=== PATIENT | male | born 1975 | race Two or more races ===

== ENCOUNTER 2024-02-03 20:18 | Emergency (ER) | payer MEDICAID, SELFPAY ==
--- NOTE | 2024-02-03 20:22 | EKG_ITS ---
[facility] Test Date: 2024-02-03 Pat Name: ANA CRISTINA CAMPOVERDE Department: Room: - Gender: Male [employer] Operator: : 1975 Requested By: Vu Caban Order Number: [id number] Reading MD: Vu Caban Measurements Intervals Point Rate: 104 P: 26 GA: 147 QRS: 47 QRSD: 110 T: 30 QT: 332 QTc: 437 Interpretive Statements SINUS TACHYCARDIA NONSPECIFIC T-WAVE ABNORMALITY ABNORMAL RHYTHM ECG Compared to ECG 12/09/2023 11:07:54 Sinus rhythm no longer present Short GA interval no longer present T-wave abnormality still present /store/S0/[id number]/ecg/[id number].pdf
[2024-02-03 20:23] VITALS: BP 123/68; PULSE 107; RESP 18; TEMP 36.8; O2SAT 99
--- NOTE | 2024-02-03 20:23 | XR_ITS ---
Examination: PA chest single view Technique: Upright PA chest single view Exam date and time: January 26, 2024 2047 hrs. Indications: Onset chest pain today. Findings: Mild prominence of ventricle No pneumonia or pulmonary edema The osseous structures are intact Impression: No pneumonia or pulmonary edema
--- NOTE | 2024-02-03 20:24 | EDNOTE_ITS ---
ED General RME/HPI General Chief complaint: Chest Pain Stated complaint: CHEST PAIN, ETOH Time Seen by Provider: 02/03/24 20:22 Arrival date/time: 02/03/24 20:18 RME / HPI RME / HPI narrative: 48-year-old male patient with significant history of hypertension diabetes mellitus, was brought in by EMS for evaluation regarding left shoulder pain. Patient told me he is having pain to the left shoulder area, radiating to the left chest, for several days, described as a long time ago, severity moderate. Patient was noted to be drunk. Patient is refusing to be touch or examine. No medication was given prior to arrival. Related Data Home Medications ?Medication ?Instructions ?Recorded ?Confirmed atorvastatin 40 mg tablet 40 tab PO DAILY 08/12/21 12/10/23 valsartan 40 mg tablet 40 mg PO DAILY 12/09/23 12/10/23 Previous Rx's ?Medication ?Instructions ?Recorded metformin 500 mg tablet 500 mg PO BID #60 tabs 08/13/21 ketorolac 10 mg tablet 10 mg PO TID PRN pain 5 days #20 02/03/24 tabs Allergies Allergy/AdvReac Type Severity Reaction Status Date / Time No Known Allergies Allergy Verified 12/10/23 06:00 Review of Systems Review of Systems Narrative Review of Systems: Review of system reviewed and within normal limits except mentioned in HPI ED Exam Narrative Physical exam: Patient is refusing to be touched or examined. Course Quality Measures none Orders Category Date Time Status EKG (ED ONLY) *Do not use* NOW Care 02/03/24 20:23 Completed EKG (ED Only) Stat Exams 02/03/24 20:22 Draft XR chest 1V Stat Exams 02/03/24 20:23 Completed B-Type Natriuretic Peptide Stat Lab 02/03/24 20:36 Completed CBC Stat Lab 02/03/24 20:36 Completed Comprehensive Metabolic Panel Stat Lab 02/03/24 20:36 Completed Partial Thromboplastin Time Stat Lab 02/03/24 20:36 Completed Prothrombin Time with INR Stat Lab 02/03/24 20:36 Completed Troponin I Stat Lab 02/03/24 20:36 Completed Ibuprofen Tab [Motrin Tab] Med 02/03/24 20:23 Discontinued 800 mg PO X1 ONE Vital Signs Vital signs: Vital Signs Temperature 98.3 F 02/03/24 20:23 Pulse Rate 107 H 02/03/24 20:23 Respiratory Rate 18 02/03/24 20:23 Blood Pressure 123/68 02/03/24 20:23 Pulse Oximetry (%) 99 02/03/24 20:23 Oxygen Delivery Method Room Air 02/03/24 20:23 [facility] Patient data External records reviewed:: None Clinical information provided by:: patient Social determinants that could affect healthcare access:: none Patient has the following chronic illnesses:: Diabetes mellitus, chronic alcoholism How is presenting disease/condition affected by chronic disease/condition?: e xacerbated by Evaluation data The following diagnostics were reviewed and interpreted by me:: lab results, radiology exam(s) and EKG tracing(s) Lab and/or radiology exams considered but not ordered:: None Interpretation Summary: Laboratory workup all came back unremarkable including normal troponin. I personally reviewed and interpreted the x-ray of this patient. There is no acute abnormalities found, no infiltrates no pneumothorax no hemothorax normal chest x-ray. Review of other structures was without significant abnormal findings also. I additionally reviewed the radiologist report and agree with the interpretation. EKG showed sinus tachycardia, ventricular rate of 104 bpm, no ST segment elevation or depression noted. As read by me Medications Medications considered but not ordered:: None Medication administrations:: Medication Administration History Discontinued Medications Ibuprofen (Ibuprofen Tab 400 Mg Tablet) 800 mg PO X1 ONE Stop: 02/03/24 20:24 Last Admin: 02/03/24 20:40 Dose: 800 mg Documented By: CESAR Hong Consultations Consultation(s) initiated? (list below): No Diagnosis Differential Diagnosis ED Complaint MDM: Chest pain, muscular chest pain, pneumonia Most likely diagnosis given after review of the tests above:: Muscular chest pain Admission Indicated Admission indicated?: not indicated Explain why admission is indicated or not indicated:: Stable for discharge Admission Request Was there a request for admission?: No Disposition Plan Disposition Plan: Discharge Discharge Attestation Discharge Attestation: The patient was given an opportunity to ask questions and understood the discharge instructions. Discharge instructions specifically effects, indications for sooner follow up or return to the emergency department, and the expected course of current diagnosis. Patient condition: Stable Medical Decision Making Differential Diagnosis Differential Diagnosis: Chest pain, muscular chest pain, pneumonia Lab Data 02/03/24 20:36 02/03/24 20:36 Labs: Lab Results 11/28/24 Range/Units 20:36 WBC 10.4 (3.8-10.6) Thou/mm3 RBC 4.96 (4.50-5.90) Miln/mm3 Hgb 15.2 (13.5-16.0) g/dL Hct 43.5 (41.0-53.0) % MCV 88 (80-100) fL MCH 30.6 (25.0-35.0) pg MCHC 34.9 (31.0-37.0) g/dl RDW Std Deviation 43.9 (35.1-43.9) fL Plt Count 199 (140-440) Thou/mm3 Neut % (Auto) 50 (37-80) % Lymph % (Auto) 37 (10-50) % Lynn % (Auto) 9 (0-12) % Eos % (Auto) 3 (0-10) % Baso % (Auto) 1 (0-2.5) % Neut # (Auto) 5.2 (1.8-7.7) Thou/mm3 Lymph # (Auto) 3.9 (1.0-4.8) Thou/mm3 Lynn # (Auto) 0.9 H (0.0-0.8) Thou/mm3 Eos # (Auto) 0.3 (0.0-0.5) Thou/mm3 Baso # (Auto) 0.1 (0.0-0.2) Thou/mm3 Immature Gran # (Auto) 0.04 H (0.00-0.00) Thou/mm3 Absolute Nucleated RBC 0.00 (0.00-0.00) Thou/mm3 Immature Gran % 0 (0-0) % Nucleated RBC % 0 (0) /100 WBC PT 10.6 (9.0-12.2) Seconds INR 1.0 (0.9-1.3) APTT 24.3 (22.0-36.0) Seconds Sodium 135 L (136-145) mMol/L Potassium 3.6 (3.4-5.1) mMol/L Chloride 98 (98-107) mMol/L Carbon Dioxide 29.1 (20.0-31.0) mMol/L Anion Gap 8 (7-16) BUN 15 (9-23) mg/dL Creatinine 1.4 H (0.6-1.3) mg/dL Estim Creat Clear Calc 57.6 L (>60) mL/min eGFR > 60 (60 - ) See Note BUN/Creatinine Ratio 11 L (12-20) Ratio Glucose 180 H (74-106) mg/dL Calculated Osmolality 275 (275-295) Calcium 8.7 (8.3-10.6) mg/dL Corrected Calcium 8.7 (8.5-10.1) mg/dL Total Bilirubin 1.1 (0.3-1.2) mg/dL AST 109 H (0-34) U/L ALT 66 H (10-49) U/L Alkaline Phosphatase 85 (46-116) U/L Troponin I < 0.002 (0.0-0.045) ng/mL B-Natriuretic Peptide < 20 (0-100) pg/mL Total Protein 7.6 (5.7-8.2) gm/dL Albumin 5.0 (3.5-5.0) gm/dL Globulin 2.6 (2.3-3.5) gm/dL Albumin/Globulin Ratio 1.9 (1.2-2.2) Discharge Plan Plan Patient Disposition: HOME (Self Care) Disposition Comment: stable Prescriptions/Referrals Prescriptions/Med Rec: New ketorolac 10 mg tablet 10 mg PO TID PRN (Reason: pain) 5 Days Qty: 20 0RF No Action atorvastatin 40 mg tablet 40 tab PO DAILY Patient Comments: TAKE ONE TABLET BY MOUTH EVERY DAY FOR CHOLESTEROL metformin 500 mg tablet 500 mg PO BID Qty: 60 0RF valsartan 40 mg tablet 40 mg PO DAILY Patient Comments: TAKE ONE TABLET BY MOUTH EVERY DAY FOR BLOOD PRESSURE Referrals: No Primary/Family,Physician [Primary Care Provider] - In 1 week Problem List Clinical Impression: Muscular chest pain Patient/Caregiver Discharge Instructions Discharge Activity: activity as tolerated Education Materials: Understanding the Pain Response Additional Instructions: Thank you for the opportunity for serving you today. You are stable for discharged . You are advised to: Follow-up with your PCP in 1 to 2 days Return to ED for worsening of symptoms Increase oral fluids Take medication as prescribed Print Language: Prydeinig Stand Alone Forms: Marcia Award Info., Patient Portal Info Letter TEMI/JONATHAN Supervising Physician TEMI/JONATHAN Supervising Physician: MD Reagan
[2024-02-03 20:26] VITALS: PULSE 109; RESP 18; O2SAT 96; BMI 25.0
[2024-02-03] MEDS: IBUPROFEN TAB 400 MG TABLET 800 MG PO (20:40)
[2024-02-03 20:44] LABS: Basophils # (Auto) 0.1 Thou/mm3 (0.0-0.2); Basophils % (Auto) 1 % (0-2.5); Eosinophils # (Auto) 0.3 Thou/mm3 (0.0-0.5); Eosinophils % (Auto) 3 % (0-10); Hematocrit 43.5 % (41.0-53.0); Hemoglobin 15.2 g/dL (13.5-16.0); Immature Granulocytes % (Auto) 0 % (0-0); Immature Granulocytes Auto 0.04 Thou/mm3 (0.00-0.00); Lymphocytes # (Auto) 3.9 Thou/mm3 (1.0-4.8); Lymphocytes % (Auto) 37 % (10-50); Mean Corpuscular HGB Conc 34.9 g/dl (31.0-37.0); Mean Corpuscular Hemoglobin 30.6 pg (25.0-35.0); Mean Corpuscular Volume 88 fL (80-100); Monocytes # (Auto) 0.9 Thou/mm3 (0.0-0.8); Monocytes % (Auto) 9 % (0-12); Neutrophils # (Auto) 5.2 Thou/mm3 (1.8-7.7); Neutrophils % (Auto) 50 % (37-80); Nucleated Red Blood Cell % 0 /100 WBC (0); Platelet Count 199 Thou/mm3 (140-440); RDW Standard Deviation 43.9 fL (35.1-43.9); Red Blood Count 4.96 Miln/mm3 (4.50-5.90); White Blood Count 10.4 Thou/mm3 (3.8-10.6)
[2024-02-03 21:02] LABS: Partial Thromboplastin Time 24.3 Seconds (22.0-36.0); Prothrombin Time 10.6 Seconds (9.0-12.2)
[2024-02-03 21:03] LABS: B-Type Natriuretic Peptide < 20 pg/mL (0-100)
[2024-02-03 21:11] LABS: Alanine Aminotransferase 66 U/L (10-49); Albumin/Globulin Ratio 1.9 (1.2-2.2); Alkaline Phosphatase 85 U/L (46-116); Anion Gap 8 (7-16); Aspartate Amino Transferase 109 U/L (0-34); BUN/Creatinine Ratio 11 Ratio (12-20); Bilirubin,Total 1.1 mg/dL (0.3-1.2); Blood Urea Nitrogen 15 mg/dL (9-23); Calcium 8.7 mg/dL (8.3-10.6); Calcium (Corrected) 8.7 mg/dL (8.5-10.1); Carbon Dioxide 29.1 mMol/L (20.0-31.0); Chloride 98 mMol/L (98-107); Creatinine (Component) 1.4 mg/dL (0.6-1.3); Estimated Creatinine Clearance 57.6 mL/min (>60); Globulin 2.6 gm/dL (2.3-3.5); Glucose 180 mg/dL (74-106); Osmolality,Calculated 275 (275-295); Potassium 3.6 mMol/L (3.4-5.1); Sodium 135 mMol/L (136-145); Total Protein 7.6 gm/dL (5.7-8.2); eGFR > 60 See Note
[2024-02-03 21:24] LABS: Troponin I < 0.002 ng/mL (0.0-0.045)
== END 2024-02-03 22:08 | disposition home or self-care (01) ==
PROVIDERS: Nurse Practitioner Family; Emergency Provider Emergency Medicine
DX: R07.9 Chest pain, unspecified (principal); M25.512 Pain in left shoulder; R00.0 Tachycardia, unspecified; I10 Essential (primary) hypertension
CPT/HCPCS: 36415; 71045; 80053; 83880; 84484; 85025; 85610; 85730; 93005; 99283; A9270

== ENCOUNTER 2024-03-05 15:09 | Emergency (ER) | payer MEDICAID, SELFPAY ==
[2024-03-05 15:10] VITALS: BMI 30.7
--- NOTE | 2024-03-05 16:03 | PC.NURSE ---
called for pt from lobby/outside, no answerx1 @ [id number]
--- NOTE | 2024-03-05 16:20 | PC.NURSE ---
pt called back x2 at 1620. No response in lobby or outside
--- NOTE | 2024-03-05 16:32 | PC.NURSE ---
CALLED FROM LOBBY AND NO ANSWER
== END 2024-03-05 16:33 | disposition left against medical advice (07) ==
PROVIDERS: Emergency Provider Emergency Medicine
DX: Z53.21 Procedure and treatment not carried out due to patient leaving prior to being seen by health care provider (principal)

== ENCOUNTER 2024-03-07 09:00 | Outpatient (RCR) | payer MEDICAID, SELFPAY ==
--- NOTE | 2024-02-09 08:43 | PT.OIERPT ---
PT OP Initial Eval Patient Information Outpatient Physical Therapy Treatment Date: 02/09/24 Visit Reasons: left shoulder pain Medical Diagnosis: s/p L RCR Treatment Dx #1: L shoulder pain Treatment Dx #2: Dec L shoulder ROM Start of Care: 02/09/24 Date of Onset: 12/10/23 DOS Smoking Status Smoking Status: Never smoker Initial Assessment Subjective: Pt is 48 yr old male s/p L RCR reports popping, cracking and pain with reaching up. He avoids lifting the UE up and doesn't move it much. PMH: HTN, DM, EtOH abuse Pt goal: to reach up without pain Objective: L shoulder AROM: PROM: FF: 40 deg 60 deg Abd: 40 deg 40 deg Erot: 10 deg Strength: NT but estimated to be 3-/5 Assessment: Pt presents with very limited ROM s/p L RCR and high tissue irritability. Pt hasn't been moving the shoulder much since sx due to pain and now has adhesions and capsular tightness. He requires skilled therapy to meet goals and has fair rehab potential. Pt may benefit from JOIE of L shoulder. Short Term and Manufacturing Specialist Goals 1. Ind with HEP ? 2. Improved AROM of R shoulder to at least 135 deg FF, 125 deg abduction and 90 deg ? ER ? 3. Improved HBB ROM to L3 ? 4. Pt will reach OH x10 with <=4/10 pain Treatment Plan 1. Manual therapy ? 2. Therex ? 3. Modalities as indicated, moist heat, ice, estim Frequency and Duration: 2x a week for 24 sessions Certification Dates: 02/09/24 to 05/07/24 Procedure Charges OP PT Eval Mod Complex 30 minutes: Yes
--- NOTE | 2024-02-22 09:20 | PT.ODAYNRPT ---
PT Outpatient Daily Note OP Daily Note Outpatient Physical Therapy Treatment Date: 02/22/24 Visit Reasons: left shoulder pain Subjective: Same as time of evaluation Objective: See F/S for therex MHP during wand therex Assessment: Very limited A/PROM of L shoulder consistent with adhesive capsulitis. Pt is fearful to move due to pain. Plan: Improve ROM Length of Time (minutes) of Treatment: 30 Minutes Procedure Charges Therapeutic Exercise 30 minutes: Yes
--- NOTE | 2024-02-25 09:18 | PT.ODAYNRPT ---
PT Outpatient Daily Note OP Daily Note Outpatient Physical Therapy Treatment Date: 02/25/24 Visit Reasons: left shoulder pain Subjective: Pt reports L shoulder is painful and stiff. Objective: Please see flow sheet for ther ex list. Assessment: Pt educated and instructed on performing AAROM exercises for HEP. Plan: Continue with POC. Length of Time (minutes) of Treatment: 30 Minutes Procedure Charges Therapeutic Exercise 30 minutes: Yes
--- NOTE | 2024-03-07 09:37 | PT.ODAYNRPT ---
PT Outpatient Daily Note OP Daily Note Outpatient Physical Therapy Treatment Date: 03/07/24 Visit Reasons: left shoulder pain Subjective: Pt shared he had a follow up with surgeon, pt is going to be scheduled for a manipulation. Pt has a follow up on March 30 for further instructions. Objective: Please see flow sheet for ther ex list. Assessment: Pt has high pain and guarded during AAROM activities, slow progress. Plan: Continue with pOC. Length of Time (minutes) of Treatment: 30 Minutes Procedure Charges Therapeutic Exercise 30 minutes: Yes
== END 2024-03-07 23:59 | disposition home or self-care (01) ==
LOC: CPTX 09:00
PROVIDERS: PCP Orthopaedic Surgery; Referring Provider Orthopaedic Surgery; Visit Provider Orthopaedic Surgery
DX: M25.512 Pain in left shoulder (principal); M62.412 Contracture of muscle, left shoulder; Z98.890 Other specified postprocedural states
CPT/HCPCS: 97110; 97162

== ENCOUNTER 2024-03-21 15:52 | Emergency (ER) | payer MEDICAID, SELFPAY ==
[2024-03-21 16:00] VITALS: BP 111/62; PULSE 99; TEMP 36.8; O2SAT 97
--- NOTE | 2024-03-21 16:24 | PC.NURSE ---
PER EMS PT BEGAN YELLING STATING THAT HE WAS LEAVING AND WALKED OUT OF AMBULANCE BAY
== END 2024-03-21 16:00 | disposition left against medical advice (07) ==
LOC: SERX 16:37
PROVIDERS: Emergency Provider Emergency Medicine
DX: Z53.21 Procedure and treatment not carried out due to patient leaving prior to being seen by health care provider (principal)
CPT/HCPCS: 99281

== ENCOUNTER 2024-03-28 08:30 | Outpatient (RCR) | payer MEDICAID, SELFPAY ==
--- NOTE | 2024-03-16 08:55 | PT.ODAYNRPT ---
PT Outpatient Daily Note OP Daily Note Outpatient Physical Therapy Treatment Date: 03/16/24 Visit Reasons: left shoulder pain Subjective: Pt reports shoulder continues to be painful and stiff. Pt shared that he is scared to use it so he just keeps it down at his side. Pt mentioned he will be having a manipulation done, pt is scheduled for a follow up with surgeon at the end of the month. Objective: Please see flow sheet for ther ex list. Assessment: Pt educated on post op timeline and that is appropriate for him to use his arm for ADL's and encouraged to perform HEP. Plan: Continue with POC. Length of Time (minutes) of Treatment: 30 Minutes Procedure Charges Therapeutic Exercise 30 minutes: Yes
--- NOTE | 2024-03-21 08:40 | PT.ODAYNRPT ---
PT Outpatient Daily Note OP Daily Note Outpatient Physical Therapy Treatment Date: 03/21/24 Visit Reasons: left shoulder pain Subjective: Pt reports L shoulder continues to be stiff and painful. Objective: Please see flow sheet for ther ex list. Assessment: Pt continues to be highly guarded during AAROm, ROM progress slow. Plan: Continue with POC. Length of Time (minutes) of Treatment: 30 Minutes Procedure Charges Therapeutic Exercise 30 minutes: Yes
--- NOTE | 2024-03-28 09:05 | PT.ODAYNRPT ---
PT Outpatient Daily Note OP Daily Note Outpatient Physical Therapy Treatment Date: 03/28/24 Visit Reasons: left shoulder pain Subjective: Continued pain of L shoulder, limited ROM Objective: See F/S for therex Assessment: High fear pain avoidance, very limited L shoulder ROM consistent with adhesive capsulitis and high tissue irritability. Plan: Improve ROM of L shoulder Length of Time (minutes) of Treatment: 30 Minutes Procedure Charges Therapeutic Exercise 30 minutes: Yes
== END 2024-04-07 23:59 | disposition home or self-care (01) ==
LOC: CPTX 08:30
PROVIDERS: PCP Orthopaedic Surgery; Referring Provider Orthopaedic Surgery; Visit Provider Orthopaedic Surgery
DX: M25.512 Pain in left shoulder (principal); Z98.890 Other specified postprocedural states
CPT/HCPCS: 97110

== ENCOUNTER 2024-05-12 05:45 | Day surgery (SDC) | payer MEDICAID, SELFPAY ==
[2024-05-11 13:15] VITALS: BMI 29.0
[2024-05-11 14:23] LABS: Basophils % (Auto) 0 % (0-2.5); Eosinophils # (Auto) 0.3 Thou/mm3 (0.0-0.5); Eosinophils % (Auto) 3 % (0-10); Hematocrit 44.6 % (41.0-53.0); Hemoglobin 15.3 g/dL (13.5-16.0); Immature Granulocytes % (Auto) 0 % (0-0); Immature Granulocytes Auto 0.02 Thou/mm3 (0.00-0.00); Lymphocytes # (Auto) 2.4 Thou/mm3 (1.0-4.8); Lymphocytes % (Auto) 24 % (10-50); Mean Corpuscular HGB Conc 34.3 g/dl (31.0-37.0); Mean Corpuscular Hemoglobin 30.2 pg (25.0-35.0); Mean Corpuscular Volume 88 fL (80-100); Monocytes # (Auto) 0.6 Thou/mm3 (0.0-0.8); Monocytes % (Auto) 6 % (0-12); Neutrophils # (Auto) 6.6 Thou/mm3 (1.8-7.7); Neutrophils % (Auto) 67 % (37-80); Nucleated Red Blood Cell % 0 /100 WBC (0); Platelet Count 161 Thou/mm3 (140-440); RDW Standard Deviation 39.4 fL (35.1-43.9); Red Blood Count 5.06 Miln/mm3 (4.50-5.90); White Blood Count 9.9 Thou/mm3 (3.8-10.6)
[2024-05-11 14:31] LABS: INR 1.1 (0.9-1.3); Partial Thromboplastin Time 28.9 Seconds (22.0-36.0)
[2024-05-11 14:39] LABS: Alanine Aminotransferase 52 U/L (10-49); Albumin, Serum 4.9 gm/dL (3.5-5.0); Albumin/Globulin Ratio 1.8 (1.2-2.2); Alkaline Phosphatase 87 U/L (46-116); Anion Gap 6 (7-16); Aspartate Amino Transferase 51 U/L (0-34); BUN/Creatinine Ratio 14 Ratio (12-20); Bilirubin,Total 1.2 mg/dL (0.3-1.2); Blood Urea Nitrogen 17 mg/dL (9-23); Calcium 9.7 mg/dL (8.3-10.6); Calcium (Corrected) 9.7 mg/dL (8.5-10.1); Carbon Dioxide 28.8 mMol/L (20.0-31.0); Chloride 106 mMol/L (98-107); Creatinine (Component) 1.2 mg/dL (0.6-1.3); Estimated Creatinine Clearance 74.7 mL/min (>60); Globulin 2.7 gm/dL (2.3-3.5); Glucose 137 mg/dL (74-106); Osmolality,Calculated 284 (275-295); Potassium 4.6 mMol/L (3.4-5.1); Sodium 141 mMol/L (136-145); Total Protein 7.6 gm/dL (5.7-8.2); eGFR > 60 See Note
[2024-05-12] VITALS (7 sets, daily range): BP systolic 128–142; BP diastolic 71–95; PULSE 74–86; RESP 12–20; TEMP 36.3–36.6; O2SAT 95–99; BMI 30.7
[2024-05-12] MEDS: RINGERS LACTATED 1000 ML 1,000 ML 20 ML IV (06:42)
--- NOTE | 2024-05-12 07:27 | SUR.PREOP ---
Patient expressed gratitude for prayer before their procedure.
--- NOTE | 2024-05-12 08:25 | SUR.PHASEI ---
0825: Pt. AAOx4, vitals stable, breathing unlabored, no complaint of pain or nausea, bandaid in place CDI, no active bleed noted, report received from Heike DUVAL and MD Sheppard.
[2024-05-12] MEDS: fentaNYL CIT INJ 50 mCg/ML AMP 2ML IV ×3 (08:33→08:50)
--- NOTE | 2024-05-12 09:10 | SUR.PHASEII ---
0910: Pt. AAOx4, vitals stable, breathing unlabored, no complaint of pain or nausea, bandaid to left shoulder CDI, no active bleed noted, pt. tolerated sips of water well, pt. ambulated to wheelchair with steady gait and no assist, no complications. Gave discharge instructions to the pt. and his ride, both verbalized understanding and had no further questions. Pt. left with all personal belongings.
--- NOTE | 2024-05-12 09:21 | PD.SUROPNT ---
Date of Procedure 05/12/24 Pre Op Diagnosis Is status post left rotator cuff repair with Ethan procedure with frozen shoulder Post Op Diagnosis Same Procedure Manipulation under anesthesia Findings Refer dictation Procedure Description Patient was given MAC anesthesia. Once satisfactory anesthesia achieved the left shoulder was manipulated. Full range of abduction and forward flexion was achieved. There movement was then quite a few times. Following that under aseptic precaution 20 mL of 1% Marcaine along with 40 mg of Kenalog was injected. Patient tolerated procedure well. Estimated blood loss negligible Anesthesia MAC Pathology / specimen None Estimated Blood Loss 0 Surgeon Wilson Boateng MD Surgical Staff Operation Date: 05/12/24 08:00 Case Staff Anesthesiologist: Maurice Sheppard
--- NOTE | 2024-05-12 10:07 | ESHP_ITS ---
RE: ANA CRISTINA CAMPOVERDE : 1975 DATE OF ADMISSION: 05/12/2024 HISTORY OF PRESENT ILLNESS: The patient came to my office on 05/11/2024 for detailed preop history and physical examination. HISTORY OF PRESENTING COMPLAINT: The patient underwent left rotator cuff repair with Ethan procedure in the month of earlier 04/2023. The patient did fine initially, but later on developed frozen shoulder. The patient is unable to raise his left arm beyond 60 degrees of abduction and forward flexion. The patient did physical therapy, but it did not help him much. PAST MEDICAL HISTORY: The patient has a history of diabetes mellitus and high blood pressure. No history of asthma, seizures, chest pain, bleeding disorder, stroke, and myocardial infarction. PAST SURGICAL HISTORY: Cholecystectomy, status post left rotator cuff repair with Ethan procedure. DRUG HISTORY: The patient is on; 1. Metformin. 2. Jardiance. 3. Atorvastatin. 4. Valsartan. FAMILY HISTORY AND SOCIAL HISTORY: The patient admits to smoking, denies drinking and is disabled. PHYSICAL EXAMINATION: GENERAL: Normal built person. VITAL SIGNS: Pulse 82 per minute. Blood pressure is 128/76. NECK: Soft, supple. No masses felt. Trachea is centrally placed. CARDIOVASCULAR SYSTEM: First and second heart sound normal. No murmur heard. LUNGS: Bilateral vesicular breath sounds. CHEST: Clear. ABDOMEN: Soft. No masses felt. Bowel sounds present. EXTREMITIES: Left shoulder examination reveals a very well-healed eschar. There is mild tenderness. Active range of motion is 0 to 60 degrees of abduction, 0 to 70 degrees of forward flexion. No further range of motion is possible. Internal rotation is restricted. Clinically, the patient has frozen shoulder. ASSESSMENT AND PLAN: The patient was explained the diagnosis and prognosis. The patient did home physical therapy as well as physical therapy as well. However, it did not improve. The patient was advised manipulation under anesthesia and injection of corticosteroid. Detailed discussion took place. Risks and benefits were explained in detail. Risks with anesthesia includes, but not limited to reaction to anesthetic agents, cardiac arrest, and rarely it might be fatal. Risks with operation or manipulation includes possible damage to the nerves, possible fracture, etc. No guarantees given regarding the outcome of the procedure. Indeed, one may be able to achieve almost full range of abduction and forward flexion, but later on the patient may regress and that is primarily due to rather inactivities. The patient is encouraged to do home exercise beside the professional physical therapy. The manipulation is booked for 05/12/2024. Appropriate lab work was done. DT: 09:28:16 TT: 10:05:00 Ref: [id number] - TID: [id number]
== END 2024-05-12 09:10 | disposition home or self-care (01) ==
PROVIDERS: Anesthesiology; PCP Family Medicine; Referring Provider Orthopaedic Surgery; Visit Provider Orthopaedic Surgery
PROC: (CPT 23700; principal; 2024-05-12 08:00)
DX: M75.02 Adhesive capsulitis of left shoulder (principal); Z98.890 Other specified postprocedural states
CPT/HCPCS: 23700; 36415; 80053; 85025; 85610; 85730; A4217; J2704; J2919; J3010; J3490; J7120

== ENCOUNTER 2024-05-29 09:00 | Outpatient (RCR) | payer MEDICAID, SELFPAY ==
--- NOTE | 2024-05-15 08:32 | PT.ODS1RPT ---
PT OP Progress/Discharge Note Date of Service: 05/15/24 Progress Note/DC Note Progress Note/Discharge Note: Progress Note Patient Information Visit Reasons: RT shoulder cuff Service Continue Service or Discharge: Continue Service Status Subjective: Pt arrives with L UE in a sling and says he had a manipulation this past Wednesday and reports continued pain in L shoulder. Objective: L shoulder AROM; FF: 60 deg Abd: 55 deg ER: 45 deg Strength: 3-/5 in all planes Assessment: Pt has attended the evaluation and 6 Rx sessions since February with somewhat inconsistent attendance and high fear pain avoidance. He is not doing HEP and progress has been very limited with ROM consistent with adhesive capsulitis. Pt would benefit from continued therapy to meet goals and needs extended certification dates. Pt encouraged to do HEP. Plan: Extend POC dates from 05/07/24 to 08/07/24 to complete visits x18 more. We need MD signature to continue with therapy visits since order was for 8 visits. Procedure Charges Therapeutic Exercise 30 minutes: Yes
--- NOTE | 2024-05-29 09:24 | PT.ODAYNRPT ---
PT Outpatient Daily Note OP Daily Note Outpatient Physical Therapy Treatment Date: 05/29/24 Visit Reasons: RT shoulder cuff Subjective: Pt c/o clicking but notices he can reach higher now. Objective: Please see flow sheet for ther ex list. Assessment: High focus on restoring ROM, pt demonstrates upper trap recruitment at times to compensate for limited GH translation. Plan: Continue with POC. Length of Time (minutes) of Treatment: 30 Minutes Procedure Charges Therapeutic Exercise 30 minutes: Yes
== END 2024-06-05 23:59 | disposition home or self-care (01) ==
LOC: CPTX 09:00
PROVIDERS: PCP Orthopaedic Surgery; Referring Provider Orthopaedic Surgery; Visit Provider Orthopaedic Surgery
DX: M25.512 Pain in left shoulder (principal); M62.412 Contracture of muscle, left shoulder; Z98.890 Other specified postprocedural states
CPT/HCPCS: 97110

== ENCOUNTER 2024-06-21 09:30 | Outpatient (RCR) | payer MEDICAID, SELFPAY ==
--- NOTE | 2024-06-06 09:29 | PT.ODAYNRPT ---
PT Outpatient Daily Note OP Daily Note Outpatient Physical Therapy Treatment Date: 06/06/24 Visit Reasons: RIGHT SHOULDER SURGERY Subjective: Continued pain of L shoulder, improved ROM Objective: See F/S for therex Assessment: High fear pain avoidance, very limited L shoulder ROM consistent with adhesive capsulitis and high tissue irritability. Plan: Improve ROM of L shoulder Length of Time (minutes) of Treatment: 30 Minutes Procedure Charges Therapeutic Exercise 30 minutes: Yes
--- NOTE | 2024-06-13 10:30 | PT.ODAYNRPT ---
PT Outpatient Daily Note OP Daily Note Outpatient Physical Therapy Treatment Date: 06/13/24 Visit Reasons: RIGHT SHOULDER SURGERY Subjective: Pt reports R shoulder is doing better. Objective: Please see flow sheet for ther ex list. Assessment: Focus on restoring ROM, stretches performed within pt tolerable range. Pt guarded resulting limited mobility during AAROM and PROM interventions. Plan: Continue with POC. Length of Time (minutes) of Treatment: 30 Minutes Procedure Charges Therapeutic Exercise 30 minutes: Yes
--- NOTE | 2024-06-15 10:14 | PT.ODAYNRPT ---
PT Outpatient Daily Note OP Daily Note Outpatient Physical Therapy Treatment Date: 06/15/24 Visit Reasons: RIGHT SHOULDER SURGERY Subjective: Pt reports R shoulder is doing ok, feels progress with mobility but slow. Objective: Please see flow sheet for ther ex list. Assessment: Pt demonstrates decrease guarding during AAROM and active exercise indicating progress. Plan: Continue with pOC. Length of Time (minutes) of Treatment: 30 Minutes Procedure Charges Therapeutic Exercise 30 minutes: Yes
--- NOTE | 2024-06-21 10:41 | PT.ODAYNRPT ---
PT Outpatient Daily Note OP Daily Note Outpatient Physical Therapy Treatment Date: 06/21/24 Visit Reasons: RIGHT SHOULDER SURGERY Subjective: Continued pain of L shoulder, improved ROM Objective: See F/S for therex Assessment: High fear pain avoidance, very limited L shoulder ROM consistent with adhesive capsulitis and high tissue irritability. Plan: Improve ROM of L shoulder Length of Time (minutes) of Treatment: 30 Minutes Procedure Charges Therapeutic Exercise 30 minutes: Yes
== END 2024-07-05 23:59 | disposition home or self-care (01) ==
LOC: CPTX 09:30
PROVIDERS: PCP Orthopaedic Surgery; Referring Provider Orthopaedic Surgery; Visit Provider Orthopaedic Surgery
DX: M25.512 Pain in left shoulder (principal); M62.412 Contracture of muscle, left shoulder; Z98.890 Other specified postprocedural states; I10 Essential (primary) hypertension; E11.9 Type 2 diabetes mellitus without complications
CPT/HCPCS: 97110

== ENCOUNTER 2025-02-22 23:29 | Emergency (ER) | payer MEDICAID, SELFPAY ==
[2025-02-22 23:29] VITALS: BMI 30.7
[2025-02-22 23:41] VITALS: BP 137/76; PULSE 110; RESP 18; TEMP 37.1; O2SAT 96
--- NOTE | 2025-02-23 01:15 | PD.EDDENTL ---
ED Dental RME/HPI General Chief complaint: Dental/Oral/Throat Stated complaint: BAD TOOTHACHE Time Seen by Provider: 02/23/25 00:15 Arrival date/time: 02/22/25 23:29 49M with history of HTN and DM presents to ED with L lower dental pain. Patient knows he needs to get that tooth extracted. Limitations: no limitations Related Data Home Medications ?Medication ?Instructions ?Recorded ?Confirmed atorvastatin 40 mg tablet 40 tab PO DAILY 08/12/21 05/11/24 valsartan 40 mg tablet 40 mg PO DAILY 12/09/23 05/11/24 empagliflozin 10 mg tablet 10 mg PO QAM 05/11/24 05/11/24 (Jardiance) gabapentin 100 mg capsule 100 mg PO Q8H 05/11/24 05/11/24 metformin 1,000 mg tablet 1,000 mg PO BIDWMEAL 05/11/24 05/11/24 Previous Rx's ?Medication ?Instructions ?Recorded amoxicillin 875 mg-potassium 1 tab PO BID 7 days #14 tabs 02/23/25 clavulanate 125 mg tablet naproxen 500 mg tablet 500 mg PO BID PRN pain #30 tabs 02/23/25 Allergies Allergy/AdvReac Type Severity Reaction Status Date / Time No Known Allergies Allergy Verified 02/22/25 23:29 Review of Systems Review of Systems Systems Reviewed: All systems reviewed, normal except as documented ENT Ears, Nose, Mouth, and Throat: Reports as per HPI and Reports dental pain Past Medical History Past Medical History NEUROLOGIC: Negative Neurological Disorders or Seizures CARDIAC: Positive Cardiac Disorders, Hypertension and Hypotension; Negative Congestive Heart Failure RESPIRATORY: Positive Cough and Smoking Exposure; Negative Chronic Obstructive Pulmonary Disease (COPD) or Asthma GASTROINTESTINAL: Positive Gastrointestinal Disorders and Obesity; Negative Hepatitis GENITOURINARY: Negative Genitourinary Disorders or Renal Disease MUSCULOSKELETAL: Negative Musculoskeletal Disorders ENT: Positive Cataracts ENDOCRINE: Positive Endocrine Disorders and Diabetes Mellitus Type 2; Negative Diabetes Mellitus Type 1 HEMATOLOGIC: Negative Blood Disorders or Sickle Cell Disease PSYCHO/SOCIAL: Negative Depression OTHER HISTORY: Positive Hospitalization (infection on right leg) and Chicken Pox; Negative Autoimmune Disease, Shingles, Blood Transfusions, Blood Transfusion Reaction, Anesthesia Reactions, MRSA or Cancer Family History FAMILY HISTORY: Positive Family Neurologic Problems, Family Cardiac Disorders, Family Gastrointestinal Problems and Family Surgery; Negative Family Psychiatric Problems, Family Respiratory Disorders, Family Cancer or Family Anesthesia Reaction Surgical History SURGICAL: Positive Abdominal Surgery; Negative Cardiac Surgery, Endocrine Surgery, Ear Surgery, Nephrectomy, Joint Replacement, Neurologic Surgery or Vasectomy Social History SMOKING STATUS: Never smoker SECOND HAND EXPOSURE: Yes ED Exam General Limitations: Present no limitations General appearance: Present alert and in no apparent distress Head Head exam: Present atraumatic ENT ENT exam: Present mucous membranes moist Expanded ENT Exam Teeth exam: Present dental caries and dental tenderness # (17/18) Neck Neck exam: Present normal inspection, full ROM and trachea midline Chest Chest inspection: Present normal inspection and symmetric chest wall rise Neurological Exam Neurological exam: Present alert and oriented X3 Psychiatric Psychiatric exam: Present normal affect and normal mood Skin Skin exam: Present warm, dry, intact and normal color Course Quality Measures none Orders Category Date Time Status Amoxicillin/Pot Clav 875 [Augmentin 875] Med 02/23/25 00:15 Discontinued 1 tab PO X1 ONE HYDROcodone*/APAP 7.5/325 [[place] 7.5/325] Med 02/23/25 00:15 Discontinued 1 tab PO X1 ONE Ketorolac Inj [Toradol Inj] Med 02/23/25 00:15 Discontinued 60 mg IM X1 ONE Vital Signs Vital signs: Vital Signs Temperature 98.8 F 02/22/25 23:41 Pulse Rate 110 H 02/22/25 23:41 Respiratory Rate 18 02/22/25 23:41 Blood Pressure 137/76 H 02/22/25 23:41 Pulse Oximetry (%) 96 02/22/25 23:41 Oxygen Delivery Method Room Air 02/22/25 23:41 O2 at 96% on RA and WNLs Dental / Oral MDM Narrative MDM Narrative:: 49M with history of HTN and DM presents to ED with L lower dental pain. Patient knows he needs to get that tooth extracted. Physical exam reveals some L lower dental tooth tenderness. Patient is afebrile, alert, but appears to be in pain. Meds and associate professor of counseling given. Patient data External records reviewed:: [facility] previous records Clinical information provided by:: patient Social determinants that could affect healthcare access:: none Patient has the following chronic illnesses:: DM and HTN How is presenting disease/condition affected by chronic disease/condition?: exacerbated by Evaluation data The following diagnostics were reviewed and interpreted by me:: other (specify) (none) Lab and/or radiology exams considered but not ordered:: not ordered Interpretation Summary: n/a Medications / Prescriptions Medications or Prescriptions considered but not ordered:: ordered Medication administrations:: Medication Administration History Discontinued Medications Hydrocodone Bitart/Acetaminophen (Hydrocodone/Apap 7.5/325 Tablet) 1 tab PO X1 ONE Stop: 02/23/25 00:16 Amoxicillin/Clavulanate Potassium (Amoxicillin/Pot Clav 875 Tablet) 1 tab PO X1 ONE Stop: 02/23/25 00:16 Ketorolac Tromethamine (Ketorolac Inj 60 Mg/2 Ml Vial) 60 mg IM X1 ONE Stop: 02/23/25 00:16 above Consultations Consultation(s) initiated? (list below): No Diagnosis Dental Differential Diagnosis: gingival abscess, dental caries, toothache, dental abscess, fracture of tooth and aphthous ulcer Most likely diagnosis given after review of the tests above:: toothache and dental caries Admission Indicated Admission indicated?: not indicated Admission Request Was there a request for admission?: No Disposition Plan Disposition Plan: Discharge Discharge Attestation Discharge Attestation: The patient and all family members were given an opportunity to ask questions and understood the discharge instructions. Discharge instructions specifically effects, indications for sooner follow up or return to the emergency department, and the expected course of current diagnosis. Patient condition: Stable Discharge Plan Plan Patient Disposition: HOME (Self Care) Discharge Disposition comment: Stable Prescriptions/Referrals Prescriptions/Med Rec: New amoxicillin-pot clavulanate 875-125 mg tablet 1 tab PO BID 7 Days Qty: 14 0RF naproxen 500 mg tablet 500 mg PO BID PRN (Reason: pain) Qty: 30 0RF No Action atorvastatin 40 mg tablet 40 tab PO DAILY Patient Comments: TAKE ONE TABLET BY MOUTH EVERY DAY FOR CHOLESTEROL valsartan 40 mg tablet 40 mg PO DAILY Patient Comments: TAKE ONE TABLET BY MOUTH EVERY DAY FOR BLOOD PRESSURE metformin 1,000 mg tablet 1,000 mg PO BIDWMEAL Jardiance 10 mg tablet 10 mg PO QAM gabapentin 100 mg capsule 100 mg PO Q8H Problem List Clinical Impression: Dental caries, Toothache Patient/Caregiver Discharge Instructions Education Materials: ED Dental Pain Additional Instructions: Please follow-up with PCP within 24-48 hours and return immediately if symptoms worsen. See dentist soon. Print Language: Bermudian Stand Alone Forms: Patient Portal Info Letter TEMI/JONATHAN Supervising Physician TEMI/JONATHAN Supervising Physician: Dr. Miranda
[2025-02-23] MEDS: AMOXICILLIN/POT CLAV 875 TABLET 1 TAB PO (01:25)
[2025-02-23] MEDS: KETOROLAC INJ 60 MG/2 ML VIAL IM (01:25)
[2025-02-23] MEDS: HYDROcodone/APAP 7.5/325 TABLET 1 TAB PO (01:25)
[2025-02-23 01:30] VITALS: BP 146/82; PULSE 101; RESP 17; TEMP 36.8; O2SAT 99
== END 2025-02-23 01:47 | disposition home or self-care (01) ==
LOC: SERX 02-23 00:31
PROVIDERS: Emergency Provider Emergency Medicine; PCP Student in an Organized Health Care Education/Training Program
DX: K02.9 Dental caries, unspecified (principal)
CPT/HCPCS: 96372; 99282; J1885; A9270